=== PATIENT | male | born 1945 | race Two or more races ===

== ENCOUNTER 2024-11-13 14:06 | Inpatient (IN) | payer OTHER ==
[~2024-11-13] VITALS: Ht 175.3 cm; Wt 68.0 kg
--- NOTE | 2024-11-13 14:21 | NUR ---
SE RECIBE PTE EN AMBULANCIA ALERTA Y ORIENTADO X3, EN AMBULANCIA EN COMPANIA DE PARAMEDICOS . REFIEREN PTE VIENE DE CRUCERO CON DIAGNOSTICOS DE PANCREATITIS. REFIEREN PTE SE DESAMYO EN EL MUELLE, TIENE VOMITOS Y DIARREAS. SE REALIZA EKG Y SE PRESENTA A .
[2024-11-13] MEDS ORDERED: 0.9 % SODIUM CHLORIDE 1,000 ML IV SCH (14:24)
[2024-11-13] MEDS ORDERED: MORPHINE SULFATE 4 MG/ML VIAL IV ONE (15:30)
[2024-11-13 16:07] LABS: BASO % 0.2 % (0.1-1.2); EOS # 0.00 (0.04-0.54); EOS % 0.0 % (0.7-7.0); LYMPH # 0.46 (1.18-3.74); LYMPH % 3.6 % (19.3-53.1); MEAN PLATELET VOLUME 9.40 fl (9.4-12.4); MONO # 0.73 (0.24-0.82); MONO % 5.8 % (4.7-12.5); NEUT # 11.40 (1.56-6.13); NEUT % 90.1 % (34.0-71.1); RED CELL DISTRIBUTION WIDTH 13.5 % (11.6-14.4)
--- NOTE | 2024-11-13 16:17 | NUR ---
SE EDUCA A PACIENTE Y FAMILIAR SOBRE ORDENES MEDICAS Y PROCEDIMIENTO A REALIZAR. BAJO MEDIDAS ASEPTICAS, SE COLECTAN MUESTRAS DE LAB, SE OBTIENE ACCESO VENOSOSO PARA ADMINISTRAR MEDICAMENTOS.
[2024-11-13 16:31] LABS: ALT/SGPT 41.0 U/L (12-78); AST/SGOT 58.0 U/L (15-37); BILIRUBIN TOTAL 0.69 mg/dL (0.3-1.2); BUN CREA RATIO 15.0 (7.0-25.0); CREATININE SERUM 1.75 mg/dL (0.70-1.30); GFR 37.79; GLOBULINA 3.8 G/DL (2.4-3.5); GLUCOSE FASTING 194.0 mg/dL (65-100); OSMOLALITY SERUM 294.0 MOSM/KG (275-295)
[2024-11-13 16:38] LABS: URINE APPEARANCE Clear; URINE BILIRRUBIN Negative (NEGATIVE); URINE BLOOD Large; URINE COLOR Yellow; URINE KETONE Trace (NEGATIVE); URINE LEUKOCYTE Negative; URINE NITRATE Negative; URINE PROTEIN Trace (NEGATIVE); URINE UROBILINOGEN 0.2 E.U./dl
[2024-11-13 16:42] LABS: URINE BACTERIA 82.7 uL (0.0-1933); URINE CAST 2.05 uL (0.0-1.40); URINE EPITHELIAL CELLS 6.4 uL (0.0-38.8); URINE RBC 187.1 uL (0.0-20.8); URINE WBC 8.9 uL (0.0-23.2)
[2024-11-13 16:43] LABS: URINE GLUCOSE >=1000 MG/DL (NEGATIVE)
[2024-11-13 16:58] LABS: COVID-19 AG NEGATIVE (NEGATIVE)
[2024-11-13] MEDS ORDERED: PIPERACILLIN/TAZOBACTAM SODIUM 3.375 GM VIAL IV ONE (17:30)
[2024-11-13] MEDS ORDERED: FAMOtidine 10 MG/ML (4ML VIAL) IV ONE (17:30)
[2024-11-13] MEDS ORDERED: FAMOTIDINE/PF 20 MG in 0.9 % SODIUM CHLORIDE 8 ML IV PUSH SCH (20:11)
[2024-11-13] MEDS ORDERED: DEXTROSE 50 % IN WATER 0.5 G/ML DISP.SYRIN IV PRN (20:15)
[2024-11-13] MEDS ORDERED: ENALAPRILAT DIHYDRATE 1.25 MG/ML VIAL IV PRN (20:15)
[2024-11-13] MEDS ORDERED: MORPHINE SULFATE 4 MG/ML CARTRIDGE IV PRN (20:15)
[2024-11-13] MEDS ORDERED: RINGERS SOLUTION,LACTATED 1,000 ML IV SCH (20:15)
[2024-11-13] MEDS ORDERED: ONDANSETRON HCL 4 MG in 0.9 % SODIUM CHLORIDE 50 ML IV PRN (20:15)
[2024-11-13] MEDS ORDERED: INSULIN LISPRO 1,000 UNIT/10 ML UNITS SUBCUTANEO PRN (20:15)
[2024-11-13] MEDS ORDERED: ACETAMINOPHEN 500 MG GEL..CAP PO PRN (20:15)
[2024-11-13 21:23] VITALS: BP 122/76; O2SAT 99
[2024-11-13 21:32] LABS: INR 1.08
[2024-11-13 21:58] LABS: ABG PH 7.367 (7.35-7.45); ABG PO2 77.6 mmHg (80-100); BICARBONATE 21.9 mmol/l (23-25); o2 21 %
[2024-11-13] MEDS ORDERED: MAGNESIUM SULFATE IN WATER 50 ML IV ONE (22:00)
[2024-11-13 22:23] VITALS: BP 137/77
[2024-11-13 23:36] VITALS: BP 128/68; O2SAT 96
[2024-11-14] MEDS ORDERED: PIPERACILLIN/TAZOBACTAM SODIUM 3.375 GM in DEXTROSE 5 % IN WATER 100 ML IV SCH
[2024-11-14 01:49] VITALS: BP 138/74; O2SAT 94
[2024-11-14] MEDS ORDERED: ENOXAPARIN SODIUM 40 MG/0.4 ML SYRINGE SUBCUTANEO SCH (09:00)
[2024-11-14] MEDS ORDERED: METOPROLOL SUCCINATE 25 MG TAB.SR.24H PO SCH (09:00)
[2024-11-14 10:40] VITALS: BP 129/68; O2SAT 96
[2024-11-14] MEDS ORDERED: MAGNESIUM SULFATE IN WATER 4 GM/100 ML PIGGYBACK IV NR (11:00)
[2024-11-14 12:54] LABS: ALT/SGPT 34.0 U/L (12-78); AST/SGOT 112.0 U/L (15-37); BILIRUBIN TOTAL 2.35 mg/dL (0.3-1.2); CHOL HDL RATIO 2.0 (0-5.0); HDL 56.0 mg/dl (40-60); LDL 41.0 mg/dl (0-130); VLDL 12.0 (0-39)
[2024-11-14 13:47] LABS: BILIRUBIN,CONJUGATED 0.28 mg/dL (0.0-0.2)
[2024-11-14 17:11] VITALS: BP 135/72; O2SAT 95
[2024-11-14 20:00] LABS: ALT/SGPT 32.0 U/L (12-78); AST/SGOT 108.0 U/L (15-37); BILIRUBIN TOTAL 2.32 mg/dL (0.3-1.2); BUN CREA RATIO 19.0 (7.0-25.0); CREATININE SERUM 1.63 mg/dL (0.70-1.30); GFR 41.02; GLOBULINA 3.1 G/DL (2.4-3.5); GLUCOSE FASTING 179.0 mg/dL (65-100); OSMOLALITY SERUM 294.0 MOSM/KG (275-295)
[2024-11-15 01:25] VITALS: BP 127/75
[2024-11-15 09:50] VITALS: BP 125/72; O2SAT 93
[2024-11-15 17:52] VITALS: BP 116/70; O2SAT 98
[2024-11-16 02:00] VITALS: BP 158/75
[2024-11-16 08:13] LABS: ALT/SGPT 26.0 U/L (12-78); AST/SGOT 57.0 U/L (15-37); BILIRUBIN TOTAL 2.14 mg/dL (0.3-1.2); BUN CREA RATIO 27.0 (7.0-25.0); CREATININE SERUM 1.29 mg/dL (0.70-1.30); GFR 53.73; GLOBULINA 3.0 G/DL (2.4-3.5); GLUCOSE FASTING 140.0 mg/dL (65-100); OSMOLALITY SERUM 297.0 MOSM/KG (275-295)
[2024-11-16 10:22] VITALS: BP 137/79
[2024-11-16 17:47] VITALS: BP 142/71
[2024-11-17 01:54] VITALS: BP 144/80
[2024-11-17 07:40] LABS: ALT/SGPT 24.0 U/L (12-78); AST/SGOT 42.0 U/L (15-37); BILIRUBIN TOTAL 1.73 mg/dL (0.3-1.2); BUN CREA RATIO 25.0 (7.0-25.0); CREATININE SERUM 1.15 mg/dL (0.70-1.30); GFR 61.34; GLOBULINA 3.2 G/DL (2.4-3.5); GLUCOSE FASTING 165.0 mg/dL (65-100); OSMOLALITY SERUM 300.0 MOSM/KG (275-295)
[2024-11-17 09:10] VITALS: BP 138/72; O2SAT 95
[2024-11-17 09:42] LABS: BASO % 0.2 % (0.1-1.2); EOS # 0.01 (0.04-0.54); EOS % 0.1 % (0.7-7.0); LYMPH # 0.83 (1.18-3.74); LYMPH % 7.7 % (19.3-53.1); MEAN PLATELET VOLUME 9.60 fl (9.4-12.4); MONO # 0.97 (0.24-0.82); MONO % 9.0 % (4.7-12.5); NEUT # 8.86 (1.56-6.13); NEUT % 81.9 % (34.0-71.1); RED CELL DISTRIBUTION WIDTH 14.5 % (11.6-14.4)
== END 2024-11-17 10:52 | disposition home or self-care (01) | DRG 439 ==
LOC: ER 14:06 → MEDJ 20:33
PROVIDERS: Emergency Medicine; General Practice; Internal Medicine; Internal Medicine Endocrinology, Diabetes & Metabolism; ADMIT Student in an Organized Health Care Education/Training Program; ATTEND Student in an Organized Health Care Education/Training Program
PROC: BW40ZZZ Ultrasonography of Abdomen (ICD-10-PCS; principal; 2024-11-13)
PROC: BW21ZZZ Computerized Tomography (CT Scan) of Abdomen and Pelvis (ICD-10-PCS; 2024-11-13)
PROC: 4A12X4Z Monitoring of Cardiac Electrical Activity, External Approach (ICD-10-PCS; 2024-11-14)
PROC: BF37ZZZ Magnetic Resonance Imaging (MRI) of Pancreas (ICD-10-PCS; 2024-11-15)
DX: K85.90 Acute pancreatitis without necrosis or infection, unspecified (principal); N17.9 Acute kidney failure, unspecified; E11.9 Type 2 diabetes mellitus without complications; Z79.4 Long term (current) use of insulin